=== PATIENT | male | born 1965 | race Caucasian/White ===

== ENCOUNTER 2019-07-28 20:53 | Emergency (ER) | payer BC ==
[2019-07-28] MEDS ORDERED: Ondansetron ODT 4 MG TAB ONE (22:59)
== END 2019-07-29 00:20 | disposition home or self-care (01) ==
LOC: MADERS 20:53
DX: R53.1 Weakness (principal); E11.9 Type 2 diabetes mellitus without complications; E78.5 Hyperlipidemia, unspecified; E78.00 Pure hypercholesterolemia, unspecified; I10 Essential (primary) hypertension; F32.9 Major depressive disorder, single episode, unspecified
CPT/HCPCS: 36416; 87804; 99284; Q0162